=== PATIENT | male | born 1940 | race Caucasian/White ===

== ENCOUNTER 2022-02-04 21:09 | Emergency (ER) | payer MEDICARE ==
[2022-02-04 21:56] VITALS: BP 170/98; PULSE 90
== END 2022-02-04 23:00 | disposition home or self-care (01) ==
LOC: JP.ED 21:09
DX: J03.80 Acute tonsillitis due to other specified organisms (principal); B96.89 Other specified bacterial agents as the cause of diseases classified elsewhere; E03.9 Hypothyroidism, unspecified; Z88.0 Allergy status to penicillin; Z88.5 Allergy status to narcotic agent; Z88.8 Allergy status to other drugs, medicaments and biological substances; Z79.899 Other long term (current) drug therapy; Z79.82 Long term (current) use of aspirin; Z90.49 Acquired absence of other specified parts of digestive tract; Z20.822 Contact with and (suspected) exposure to COVID-19
CPT/HCPCS: 36415; 85025; 87081; 87880; 99283; U0002

== ENCOUNTER 2024-01-04 15:20 | Emergency (ER) | payer MEDICARE | END 2024-01-04 16:24 | disposition left against medical advice (07) | LOC: JP.ED 15:20 | DX: Z53.21 Procedure and treatment not carried out due to patient leaving prior to being seen by health care provider (principal) ==